=== PATIENT | male | born 1965 | race African-American/Black ===

== ENCOUNTER 2017-09-01 15:38 | Emergency (ER) | payer MEDICAID, OTHER ==
[~2017-09-01] VITALS: Ht 172.7 cm; Wt 59.0 kg
[2017-09-01 15:54] VITALS: BP 136/95
== END 2017-09-01 17:23 | disposition home or self-care (01) ==
LOC: ER 15:38
DX: S80.02XA Contusion of left knee, initial encounter (principal); S40.012A Contusion of left shoulder, initial encounter; F17.210 Nicotine dependence, cigarettes, uncomplicated; F12.10 Cannabis abuse, uncomplicated; V49.49XA Driver injured in collision with other motor vehicles in traffic accident, initial encounter; Y93.89 Activity, other specified; Y99.8 Other external cause status; Y92.410 Unspecified street and highway as the place of occurrence of the external cause
CPT/HCPCS: 73020; 73560